=== PATIENT | male | born 1975 | race African-American/Black ===

== ENCOUNTER 2017-03-31 10:39 | Emergency (ER) | payer MEDICAID ==
[~2017-03-31] VITALS: Ht 185.4 cm; Wt 100.0 kg
[2017-03-31] MEDS ORDERED: ACETAMINOPHEN 325MG TABLET PO ONE (15:00)
[2017-03-31 15:44] VITALS: BP 95/69
== END 2017-03-31 16:48 | disposition home or self-care (01) ==
LOC: ER 11:52
DX: R51 Headache (principal); R50.9 Fever, unspecified
CPT/HCPCS: 99283